=== PATIENT | male | born 1990 | race Caucasian/White ===

== ENCOUNTER 2016-08-04 13:36 | Emergency (ER) | payer OTHER | END 2016-08-04 15:15 | disposition home or self-care (01) | LOC: ER 13:36 | DX: K08.89 Other specified disorders of teeth and supporting structures (principal) | CPT/HCPCS: 99283; A9270-GY ==

== ENCOUNTER 2017-01-27 23:13 | Emergency (ER) | payer SELFPAY | END 2017-01-28 00:21 | disposition home or self-care (01) | LOC: ER 23:13 | DX: K02.9 Dental caries, unspecified (principal) | CPT/HCPCS: 99283; A9270-GY ==